=== PATIENT | male | born 1930 | race Caucasian/White ===

== ENCOUNTER → 2016-05-24 | Outpatient (CLI) | payer MEDICARE, OTHER ==
[~2016-05-24] MED LIST: ADVAIR 250-501 EAC1 IH; ALLEGRA PO; AMIODARONE PO; ASPIRIN EC81 M1 PO; COUMADIN PO; CRESTOR5 MG PO; DIGOXIN0.25 MG/5 PO; DIOVAN PO; LASIX20 MG PO; OMEPRAZOLE20 M1 PO; POTASSIUM CHLO10 ME1 PO; PRADAXA150 MG PO; PREVACID PO; SPIRIVA18 MCG INH; TOPROL XL PO; VICODIN PO; XOPENEX0.63 MG/3 IH
--- NOTE | ~2016-05-24 | CR63 ---
[facility] A Service of [facility] RADIOLOGY TEXT RESULTS PATIENT: KANDI TORRES LOCATION: [facility] [place] : [birth year] UNIT #: [id number] AGE: [address]: Grzegorz Boyd MD SEX: M ORDER DR: [id number] [place] [id number] O MR#: [id number] Acc #: [id number] NAME: KANDI TORRES : 1930 SEX: M STUDY DATE/TIME: 05/24/2016 11:26 UNIT: [facility] ROOM: STUDY DESCRIPTION: CR Chest 2 View Attending Physician: Grzegorz Boyd M.D. Referring Physician: Grzegorz Boyd M.D. Ordering Physician: Grzegorz Boyd M.D. Primary Care Physician: Adriana Hurst M.D. MEDICAL IMAGING REPORT This report is preliminary unless electronic signature is present. EXAM Two-view chest INDICATION Lung mass PROCEDURE Frontal and lateral views of the chest COMPARISON 05/08/2016 FINDINGS Stable cardiomegaly. Pacer leads are unchanged. There is some linear opacity lateral left lung base in keeping with atelectasis or scarring. Stable elevation left hemidiaphragm. There is slight, ill-defined opacity in the right lung base not clearly seen on the prior. No mass or dense consolidation. No pneumothorax. IMPRESSION 1. Slightly increasing patchy opacity in the right lung base could represent atelectasis or developing infiltrate. 2. Linear scarring or atelectasis in the lateral left lung base. Otherwise no change from 05/08/2016. Dictated by... Ramiro Rogers M.D. THIS IS AN ELECTRONICALLY VERIFIED REPORT Ramiro Rogers M.D. at 05/26/2016 7:14 AM [place] A Service [facility] RADIOLOGY TEXT RESULTS PATIENT: KANDI TORRES LOCATION: [facility] [place] : [birth year] UNIT #: [id number] AGE: [address]: Grzegorz Boyd MD SEX: M ORDER DR: TD: 05/24/2016 17:27 JOB #: [id number] MEDICAL IMAGING REPORT Page 1 of 1
== END | disposition home or self-care (01) ==
LOC: SRAD 11:19
DX: R91.8 Other nonspecific abnormal finding of lung field (principal)
CPT/HCPCS: 71020

== ENCOUNTER → 2016-08-24 | Outpatient (CLI) | payer MEDICARE, OTHER ==
--- NOTE | ~2016-08-24 | CT57 ---
[facility] A Service of [facility] RADIOLOGY TEXT RESULTS PATIENT: KANDI TORRES LOCATION: [facility] : [birth year] UNIT #: [id number] AGE: [address]: Grzegorz Boyd MD SEX: M ORDER DR: [id number] [address] [id number] O MR#: [id number] Acc #: [id number] NAME: KANDI TORRES : 1930 SEX: M STUDY DATE/TIME: 08/24/2016 11:33 UNIT: [facility] ROOM: STUDY DESCRIPTION: CT Chest Wo Cont Attending Physician: Grzegorz Boyd M.D. Referring Physician: Grzegorz Boyd M.D. Ordering Physician: Grzegorz Boyd M.D. Primary Care Physician: Adriana Hurst M.D. MEDICAL IMAGING REPORT This report is preliminary unless electronic signature is present. EXAM CT chest without contrast TECHNIQUE CTA of the thorax without contrast. Coronal and sagittal reconstructions were obtained. This CT exam was performed with one or more of the following radiation dose reduction techniques: Automatic exposure control, adjustment of mA and/or kV according to patient size, and iterative reconstruction. COMPARISON CT thorax dated 04/13/2016 and 05/05/2015. HISTORY Emphysema. Recent pneumonia. FINDINGS There is a 1.1 cm solid and ground-glass nodule in the anterior aspect of the left lobe. This previously measured 1.4 cm on 05/05/2015. There is some mucous plugging within the right lower lobe bronchus and some linear airspace opacities. This may represent an acute pneumonia or the sequelae of the patient's previous pneumonia. There is some bronchial wall thickening in the right lower lobe bronchus. Remainder of the right lung is clear. Followup CT is recommended after resolution. No pathologically enlarged mediastinal or hilar lymph nodes. There is borderline enlargement of the mid ascending thoracic aorta measuring 4 cm. The mid descending thoracic aorta measures 3.4 cm, unchanged. No pericardial or pleural effusion. There are some calcifications of the aortic valve, which could indicate aortic valvular stenosis. There is severe coronary artery calcifications. STS. [facility] A Service of [facility] RADIOLOGY TEXT RESULTS PATIENT: KANDI TORRES LOCATION: [facility] : [birth year] UNIT #: [id number] AGE: [address]: Grzegorz Boyd MD SEX: M ORDER DR: Abnormal morphology of the liver is indicative of cirrhosis. IMPRESSION 1. Area of consolidation in the right lower lobe with associated mucous plugging in the right lower lobe bronchi. Patient has a recent history of pneumonia and this probably represents either the residual pneumonia or the recurrent pneumonia. Followup radiographs or chest CT is recommended to further evaluate and document solution. 2. 1.1 cm mixed-attenuation nodule in the left upper lobe previously measured 1.4 cm on 05/05/2015. This can be followed. 3. Emphysema. 4. 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 These are unchanged. Dictated by... Brayden Gregory M.D. THIS IS AN ELECTRONICALLY VERIFIED REPORT Brayden Gregory M.D. at 08/25/2016 7:50 AM LAST/sujata TD: 08/24/2016 16:43 JOB #: [id number] MEDICAL IMAGING REPORT Page 1 of 1
== END | disposition home or self-care (01) ==
LOC: SCT 10:44
DX: J43.9 Emphysema, unspecified (principal); R91.1 Solitary pulmonary nodule; J18.1 Lobar pneumonia, unspecified organism; I71.2 Thoracic aortic aneurysm, without rupture
CPT/HCPCS: 71250